=== PATIENT | male | born 1970 | race Caucasian/White ===

== ENCOUNTER 2021-11-22 08:47 | Day surgery (SDC) | payer BC ==
[2021-11-20 15:22] VITALS: BMI 30.9
[~2021-11-22 08:47] MED LIST: LACTATED RINGERS 1,000 ML IV SCH
[2021-11-22 09:41] VITALS: TEMP 96.9
[2021-11-22] MEDS ORDERED: PROPOFOL 10 MG/ML 20 ML VIAL IV ONE (10:02)
--- NOTE | 2021-11-22 10:20 | P.PCN ---
Date of Procedure: 11/22/21 Procedure(s) Performed: BRIEF HISTORY: Patient is a 51-year-old pleasant male scheduled for an elective colonoscopy as a part of screening for colorectal neoplasia. PROCEDURE PERFORMED: Colonoscopy with biopsy and snare polypectomy. PREOPERATIVE DIAGNOSIS: Screening for colon cancer. IV sedation per Anesthesia. PROCEDURE: After informed consent was obtained, the patient, was brought into the endoscopy unit. IV sedation was administered by Anesthesia under continuous monitoring. Digital rectal examination was normal. Initially the Olympus CF-160 flexible video colonoscope was then inserted in the rectum, gradually advanced into the cecum without any difficulty. Careful examination was performed as the scope was gradually being withdrawn. Ileocecal valve and the appendiceal orifice were visualized and appeared normal. Prep was excellent. Mucosa of the cecum, appeared normal. In the ascending colon there were 2 polyps measuring 3 mm in size removed by cold biopsy. In the hepatic flexure there was a 4 mm polyp removed by cold biopsy. In the transverse colon there were 3 mm 2 polyps and a 4 mm polyp removed by cold biopsy. In the sigmoid: There was a 1 cm polyp removed by snare polypectomy. Rest of the ascending colon, transverse colon, descending colon, sigmoid colon, and rectum appeared normal. Retroflexion was performed in the rectum and no lesions were seen. The patient tolerated the procedure well. IMPRESSION: 3 mm 2 ascending colon polyp status post cold biopsy 4 mm hepatic flexure polyp status post cold biopsy 3 mm 2 and 4 mm colon polyps status post cold biopsy 1 cm sigmoid polyp status post polypectomy RECOMMENDATIONS: Findings of this examination were discussed with the patient as well as a family. He was advised to follow with the biopsy results. If the biopsy revealed adenoma he can have a repeat colonoscopy in 3 years.
[2021-11-22 10:46] VITALS: BP 121/87; PULSE 58; RESP 17
== END 2021-11-22 11:10 | disposition home or self-care (01) ==
LOC: ORWHC2ENDO 08:47
PROVIDERS: ATTEND Internal Medicine Gastroenterology
DX: Z12.11 Encounter for screening for malignant neoplasm of colon (principal); D12.2 Benign neoplasm of ascending colon; D12.3 Benign neoplasm of transverse colon; D12.5 Benign neoplasm of sigmoid colon
CPT/HCPCS: 45380; 45385; 88305; J2704

== ENCOUNTER 2024-12-23 06:10 | Day surgery (SDC) | payer BC ==
[2024-12-23] MEDS: LACTATED RINGERS 1,000 ML IV SCH (06:56)
[2024-12-23 06:59] VITALS: TEMP 96.8
[2024-12-23] MEDS: IV FLUID CONTINUATION 1,000 ML IV ONE ×2 (06:59→07:22)
[2024-12-23] MEDS ORDERED: LIDOCAINE 1% INJ 10MG/ML (20 ML MDV) ONE (07:34)
[2024-12-23] MEDS ORDERED: PROPOFOL 10 MG/ML 20 ML VIAL IV ONE (07:34)
[2024-12-23 08:16] VITALS: BP 124/75; PULSE 55; RESP 16
--- NOTE | 2024-12-23 08:16 | P.PCN ---
Date of Procedure: 12/23/24 Procedure(s) Performed: My BRIEF HISTORY: Patient is a 54-year-old pleasant white male scheduled for an elective colonoscopy as a part of screening for history of history of colon polyps. Last colonoscopy was 3 years ago and was to have 2 multiple colon polyps all of which revealed tubular adenoma. PROCEDURE PERFORMED: Colonoscopy with biopsy. PREOPERATIVE DIAGNOSIS: Screening for history of colon polyps. IV sedation per Anesthesia. PROCEDURE: After informed consent was obtained, the patient, was brought into the endoscopy unit. IV sedation was administered by Anesthesia under continuous monitoring. Digital rectal examination was normal. Initially the Olympus CF-160 flexible video colonoscope was then inserted in the rectum, gradually advanced into the cecum without any difficulty. Careful examination was performed as the scope was gradually being withdrawn. Ileocecal valve and the appendiceal orifice were visualized and appeared normal. Prep was excellent. Mucosa of the cecum, appeared normal. Descending colon there was a 2 mm and 3 mm sessile polyp removed by cold biopsy. In the transverse colon there was a 3 mm to 4 mm polyp removed by cold biopsy. In the descending colon there was a 4 mm polyp x 2 that was removed by cold biopsy. Rest of the ascending colon, transverse colon, descending colon, sigmoid colon, and rectum appeared normal. Retroflexion was performed in the rectum and no lesions were seen. The patient tolerated the procedure well. IMPRESSION: 2 mm and 3 mm ascending colon polyp status post cold biopsy 3 mm and 4 mm transverse colon polyp status post cold biopsy 4 mm x 2 descending colon polyp status post cold biopsy RECOMMENDATIONS: Findings of this examination were discussed with the patient as well as his family. He was advised to follow-up the biopsy results. If the biopsy he can have repeat colonoscopy in 3 years..
== END 2024-12-23 08:38 | disposition home or self-care (01) ==
LOC: ORWHC2ENDO 06:10
PROVIDERS: ATTEND Internal Medicine Gastroenterology
DX: Z12.11 Encounter for screening for malignant neoplasm of colon (principal); D12.4 Benign neoplasm of descending colon; D12.3 Benign neoplasm of transverse colon; Z88.0 Allergy status to penicillin; Z88.6 Allergy status to analgesic agent
CPT/HCPCS: 88305; 88342; 88341; 45380; J2003; J2704